=== PATIENT | male | born 1935 | race Caucasian/White ===

== ENCOUNTER 2025-03-29 10:23 | Emergency (ER) | payer MEDICARE, BC, SELFPAY ==
[2025-03-29 10:34] VITALS: BP 140/61
--- NOTE | 2025-03-29 12:02 | ED.GENMED ---
History of Present Illness
<Danielle Kelley PA-C - Last Filed: 03/29/25 18:49>
General
Chief Complaint: Skin Problem
Time Seen by Provider: 03/29/25 11:44
History of Present Illness
History of Present Illness:
Madi is an 89-year-old male with past medical history of high blood pressure, hyperlipidemia who was seen in his PCP's office for a right lower extremity rash that was concerning for cellulitis and was started on antibiotics. When rash did not
improve and spread to left leg and right arm he followed up in the office and was switched to doxycycline. So far he has completed 4 doses of doxycycline and daughter states that rash is not getting any worse and maybe has some slight improvement.
Denies any fever, chills or systemic symptoms. No shortness of breath or chest pain.
Past History
<Danielle Kelley PA-C - Last Filed: 03/29/25 18:49>
Past History
ED Past Medical History: HTN and Hypercholesterolemia
ED Past Surgical History: None
Social History
Tobacco: Non-smoker
Alcohol: None
Drug: None
Living: with family
Employment: Retired
Family History
Family History: Other (Noncontributory)
Phy Exam
<Danielle Kelley PA-C - Last Filed: 03/29/25 18:49>
General Physical Exam
General Presentation: well appearing and no apparent distress
General Skin: warm and dry
General Habitus: normal
General Mental: alert
General Hydration: appears well hydrated
ENT Exam
ENT Exam: EOMI, pharynx normal, neck supple and normocephalic
Eye Exam
Eye Exam: PERRL, cornea clear and conjunctiva normal
Cardiovascular Exam
Cardiovascular Exam: regular rate/rhythm, no edema, no murmur and normal peripheral pulses
Pulmonary Exam
Pulmonary Exam: lungs clear, no respiratory distress, no rales, no crackles, no rhonchi, no stridor, no wheezing and no cough
Gastrointestinal Exam
Gastrointestinal Exam: normal bowel sounds, non tender, soft, no organomegaly, no pulsatile mass and non distended
Neurological Exam
Neurological Exam: alert, oriented x3, no motor deficits and speech normal
Musculoskeletal Exam
Musculoskeletal Exam: full ROM and no edema
Skin Exam
Skin Exam: normal color, warm/dry, no rash, no petechia and erythema (RLE, LLE, RUE)
Psychiatric Exam
Psychiatric Exam: normal mood/affect
Course
<Danielle Kelley PA-C - Last Filed: 03/29/25 18:49>
Orders/Labs/Results
Orders:
03/29/25 10:38
03/29/25 10:38
Vital Signs
Initial and Last Documented VS:
Initial Vital Signs
Pulse Resp BP Pulse Ox
68 20 140/61 98
03/29/25 10:34 03/29/25 10:34 03/29/25 10:34 03/29/25 10:34
Last Documented Vital Signs
Temp Pulse Resp BP Pulse Ox
36.6 C 68 20 140/61 98
03/29/25 10:37 03/29/25 10:34 03/29/25 10:34 03/29/25 10:34 03/29/25 12:05
<Brit Powers MD - Last Filed: 03/29/25 15:09>
Orders/Labs/Results
Orders:
03/29/25 10:38
03/29/25 10:38
Vital Signs
Initial and Last Documented VS:
Initial Vital Signs
Pulse Resp BP Pulse Ox
68 20 140/61 98
03/29/25 10:34 03/29/25 10:34 03/29/25 10:34 03/29/25 10:34
Last Documented Vital Signs
Temp Pulse Resp BP Pulse Ox
36.6 C 68 20 140/61 98
03/29/25 10:37 03/29/25 10:34 03/29/25 10:34 03/29/25 10:34 03/29/25 12:05
<Danielle Kelley PA-C - Last Filed: 03/29/25 18:49>
MDM/Problems Addressed
Differential Diagnosis Includes:
Rash not consistent with cellulitis in my opinion. Likely inflammatory or dermatitis. Will trial a course of p.o. steroids. No indication for further antibiotics. Discussed with patient that he should follow-up with dermatology if the rash does
not improve with trial of steroids. Return precautions discussed. Patient was seen by the attending.
<Danielle Kelley PA-C - Last Filed: 03/29/25 18:49>
*Pulse Oximetry
SaO2: 98
Oxygen Mode of Delivery: Room air
Patient hypoxic: no
*Critical Care Note
Total Time (30-74mins, 75-104mins- exclusive of procedures): Not Applicable
ED Attending Note
<Danielle Kelley PA-C - Last Filed: 03/29/25 18:49>
-
Portions of this chart may have been created with voice recognition software.� Occasional wrong word or��sound alike� substitutions may have occurred due to the inherent limitations of voice recognition software.
<Brit Powers MD - Last Filed: 03/29/25 15:09>
ED Attending Note
Patient seen and examined by attending physician: Yes
I performed the substantive portion of visit, reviewed & personally made and approve the management plan that is documented in note by myself or GIOVANNI.: Yes
ED Attending Note:
89 yr old male with rash on extrem and now R ue, started on abx, switched to another, rash not improved. No f/c/n/v/drainage/cp/sob/throat tightness/lip or tongue swelling, new exposure or other complnts. On exam, nosnpec maculopap rash on bilat le
and R ue. No vesicles/bullae/purpura/petechiae/palm invovlement, no systemic s/sxs. Recommend steroids, derm f/u.
Discharge Plan
Departure
Patient Disposition: Home (Routine Discharge)
Date of Disposition: 03/29/25
Time of Disposition: 12:25
Patient with high blood pressure during this ER visit?: No
Discharge Problem:
Rash, Dermatitis
Instructions: Skin Rash (DC)
Prescriptions:
New
prednisone 10 mg tablet
10 mg PO DIRECTED Qty: 42 0RF
Rx Instructions:
60mg qd x2d, 50mg qd x2d, 40mg qd x2d, 30mg qd x2d, 20mg qd x2d, 10mg qd x2d
No Action
latanoprost 0.005 % drops
1 drp BOTH EYES HS
doxycycline hyclate 100 mg capsule
100 mg PO Q12H
Patient Comments:
03/28/2025, filled on 03/26/2025 and instructed to take 1 cap Q12H for 10 days.
trazodone 50 mg Tablet
50 mg PO HS
polyethylene glycol 3350 [Miralax] 17 gram Powder In Packet
17 g PO HS
cetirizine [Zyrtec] 10 mg Tablet
10 mg PO HS
lisinopril-hydrochlorothiazide 20-12.5 mg tablet
1 tab PO DAILY
triamcinolone acetonide 0.1 % Cream
1 applic TOPICAL BID
simvastatin 40 mg Tablet
40 mg PO HS
timolol maleate 0.25 % drops
1 drp BOTH EYES BID
Centrum Silver Tablet
1 tab PO DAILY
PreserVision AREDS 2,148 mcg-113 mg-45 mg-17.4mg Tablet
1 tab PO DAILY
Referrals:
[facility] [Provider Group]
Lucia Gutierrez PA-C [Family Provider, General]
Activity Restrictions/Additional Instructions:
If rash does not improve in the next several days follow up with dermatology.
Interventions
Interventions:
*General Assessment Last Done: 03/29/25 12:31
*Neglect/Abuse Screening Last Done: 03/29/25 12:31
*ED COVID-19 Vaccine History Last Done: 03/29/25 10:34
*ED Influenza Vaccine History Last Done: 03/29/25 10:34
[facility] Fall Risk Assessment Tool Last Done: 03/29/25 12:29
*Risk Screen - Suicide (C-SSRS) Last Done: 03/29/25 10:34
*Nursing Disposition Last Done: 03/29/25 12:31
ED-Skin Assessment Last Done: 03/29/25 12:30
Discharge Date and Time
Discharge Date/Time: 03/29/25 12:32
Print Language: KOREAN
== END 2025-03-29 12:32 | disposition home or self-care (01) ==
LOC: EMR 10:23
PROVIDERS: EMERGENCY PHYSICIAN Emergency Medicine; FAMILY PHYSICIAN Physician Assistant
DX: L30.9 Dermatitis, unspecified (principal); E78.00 Pure hypercholesterolemia, unspecified; I10 Essential (primary) hypertension
CPT/HCPCS: 99283